=== PATIENT | female | born 1985 | race Caucasian/White ===

== ENCOUNTER 2020-02-27 05:31 | Inpatient (IN) | payer MEDICAID ==
[2020-02-27] MEDS ORDERED: Scopolamine 1.5 MG Transdermal Patch TOP SCH (05:45)
[2020-02-27] MEDS ORDERED: Acetaminophen 500 MG Tab PO ONE (05:45)
[2020-02-27] MEDS ORDERED: Celecoxib 200 MG Cap PO ONE (05:45)
[2020-02-27] MEDS ORDERED: Dextrose 5%-Lactated Ringers 1,000 ML IV SCH (06:00)
[2020-02-27] MEDS ORDERED: cefOXitin 2 GM Vial ONE (06:37)
[2020-02-27 06:43] LABS: HEMOGLOBIN A1C 5.4 % (4.5-6.2)
[2020-02-27] MEDS ORDERED: Glycopyrrolate 0.2 MG/ML 5 ML MDV ONE (07:12)
[2020-02-27] MEDS ORDERED: Ondansetron 4 MG/2 ML SDV ONE (07:12)
[2020-02-27] MEDS ORDERED: fentaNYL 250 MCG/5 ML SDV ONE ×3 (07:12→08:23)
[2020-02-27] MEDS ORDERED: Succinylcholine 200 MG/10 ML MDV ONE (07:12)
[2020-02-27] MEDS ORDERED: Propofol 200 MG/20 ML SDV ONE (07:12)
[2020-02-27] MEDS ORDERED: Neostigmine Methylsulfate 1 MG/ML 5 ML Syringe ONE (07:12)
[2020-02-27] MEDS ORDERED: Rocuronium 50 MG/5 ML Vial ONE (07:12)
[2020-02-27] MEDS ORDERED: Dexamethasone 4 MG/ML SDV ONE (07:12)
[2020-02-27] MEDS ORDERED: cefOXitin 2 GM in Sodium Chloride 0.9% 50 ML IV ONE (07:15)
[2020-02-27] MEDS ORDERED: Magnesium Sulfate 3.4 GM in Sodium Chloride 0.9% 100 ML IV SCH (07:30)
[2020-02-27] MEDS ORDERED: Ketamine 50 MG in Sodium Chloride 0.9% 49.5 ML IV SCH (07:30)
[2020-02-27] MEDS ORDERED: Ketamine 500 MG/5 ML MDV IV SCH (07:30)
[2020-02-27] MEDS ORDERED: Labetalol 20 MG/4 ML Syringe ONE (08:07)
[2020-02-27] MEDS ORDERED: hydrOXYzine HCL 100 MG/2 ML SDV IM ONE (09:21)
[2020-02-27] MEDS ORDERED: fentaNYL 100 MCG/2 ML SDV IVPUSH ONE (09:39)
[2020-02-27] MEDS: MAGNESIUM SULFATE IV ONE ×2 (10:37→10:40)
[2020-02-27] MEDS: SODIUM CHLORIDE 0.9% IV ONE ×2 (10:37→10:40)
[2020-02-27] MEDS ORDERED: Calcium Gluconate 10% 1 GM/10 ML SDV IVPUSH PRN (11:00)
[2020-02-27] MEDS ORDERED: HYDROmorphone 0.5 MG/0.5 ML Syringe IVPUSH PRN (11:00)
[2020-02-27] MEDS ORDERED: hydrOXYzine HCL 100 MG/2 ML SDV IM PRN (11:00)
[2020-02-27] MEDS ORDERED: diphenhydrAMINE 50 MG/ML SDV IVPUSH PRN (11:00)
[2020-02-27] MEDS ORDERED: Acetaminophen 500 MG Tab PO PRN (11:00)
[2020-02-27] MEDS ORDERED: HYDROmorphone 1 MG/ML Syringe IV PRN (11:00)
[2020-02-27] MEDS ORDERED: Metoclopramide 10 MG/2 ML SDV IVPUSH PRN (11:00)
[2020-02-27] MEDS ORDERED: Ondansetron 4 MG/2 ML SDV IVPUSH PRN (11:00)
[2020-02-27] MEDS ORDERED: Labetalol 20 MG/4 ML Syringe IVPUSH PRN (11:00)
[2020-02-27] MEDS ORDERED: Lactated Ringers 1,000 ML ONE (11:53)
[2020-02-27] MEDS: oxyCODONE 5 MG Tab PO PRN ×2 (12:04→20:06)
[2020-02-27] MEDS ORDERED: Pantoprazole 40 MG Vial IVPUSH SCH (14:00)
[2020-02-27] MEDS: cefOXitin 2 GM in Sodium Chloride 0.9% 50 ML IV SCH ×2 (14:54→19:59)
[2020-02-27] MEDS: Dextrose 5%-Lactated Ringers 1,000 ML IV SCH (14:54)
[2020-02-27] MEDS: Acetaminophen 500 MG Tab PO SCH ×2 (14:56→21:44)
[2020-02-27] MEDS: Heparin Sodium 5,000 Units/ML Vial SUBCUT SCH (15:56)
[2020-02-27] MEDS: MVI, Adult with Vitamin K 10 ML, Thiamine 200 MG, Chromium/Copper/Mang/Selen/Zn 1 ML in... IV SCH ×4 (17:35)
[2020-02-28] MEDS: cefOXitin 2 GM in Sodium Chloride 0.9% 50 ML IV SCH ×3 (01:11→13:33)
[2020-02-28] MEDS ORDERED: Benzocaine/Cetylpyridinium/Menthol Lozenge MUCMEM PRN (02:12)
[2020-02-28] MEDS: oxyCODONE 5 MG Tab PO PRN (02:17)
[2020-02-28] MEDS ORDERED: Iopamidol 612 MG/ML 50 ML SDV PO STA (02:41)
[2020-02-28] MEDS: Dextrose 5%-Lactated Ringers 1,000 ML IV SCH (03:15)
[2020-02-28] MEDS: Cyclobenzaprine 10 MG Tab PO PRN ×2 (03:17→09:26)
[2020-02-28] MEDS: Acetaminophen 500 MG Tab PO SCH ×3 (05:12→22:59)
[2020-02-28] MEDS: Heparin Sodium 5,000 Units/ML Vial SUBCUT SCH ×2 (05:14→16:02)
[2020-02-28] MEDS ORDERED: Ondansetron 4 MG Tab.DIS PO PRN (07:22)
[2020-02-28] MEDS ORDERED: hydrOXYzine HCl 25 MG Tab PO PRN (07:23)
[2020-02-28] MEDS ORDERED: Dextrose 5%-Lactated Ringers 1,000 ML IV SCH (07:30)
[2020-02-28] MEDS: Celecoxib 200 MG Cap PO SCH ×2 (08:43→22:59)
[2020-02-28] MEDS: SCOPOLAMINE PATCH CHECK TOP SCH (08:44)
--- NOTE | 2020-02-28 09:36 | CR ---
[facility] HISTORY: Postbariatric surgery FINDINGS: Patient swallowed water-soluble contrast. Upright views of the abdomen show no evidence of extravasation or obstruction. There is a surgical drain in the left upper quadrant. IMPRESSION: Status post bariatric surgery No extravasation or obstruction seen
--- NOTE | 2020-02-28 11:33 | PN ---
DATE OF SERVICE: 02/28/2020 SUBJECTIVE: Belinda is postoperative day #1. Upper GI this morning was normal. She reports most of her pain from her abdominal binder being too tight. Once it was removed, she states she felt 100% better. Oral intake 920, output 1200, and MARIA C drain put out 260 of a light pink drainage. She has been up ambulating. Afebrile. REVIEW OF SYSTEMS: Remainder of review of systems negative for any pertinent positives and negatives. OBJECTIVE: GENERAL: Belinda Lee is a pleasant 34-year-old female. She is quite sleepy, but answers questions appropriately. VITAL SIGNS: TPR is 98, 51, 18, blood pressure 116/64. HEENT: Negative. NECK: Supple. HEART: Regular rate and rhythm. LUNGS: Clear. ABDOMEN: Abdominal binder was removed. Dressings dry and intact. MARIA C drain intact as above. EXTREMITIES: Without peripheral edema. ASSESSMENT: 1. Laparoscopic gastric bypass surgery. 2. Liver biopsy. 3. Repair of diaphragmatic hernia. POSTOPERATIVE DIAGNOSES: 1. Morbid obesity. 2. Hepatomegaly. 3. Diaphragmatic hernia. Date of procedure 02/27/2020. Surgeon: Temo Andre MD. PLAN: 1. Decrease IV of D5 LR to 100 mL/hour. 2. Step 2 gastric bypass diet with no cereal. 3. May shower. 4. Communication order to give 3 med cups, one for 20 minutes and record at bedside. 5. Atarax 25 mg one q.4 hours p.r.n. pain in addition to the energy protocol. 6. Zofran ODT 4 mg q.4 hours p.r.n. nausea. 7. Continue use of incentive spirometer and ambulation. 8. We will evaluate p.r.n. or in a.m. Leonora Perea PA-C /[id number]
[2020-02-28] MEDS: MVI, Adult with Vitamin K 10 ML, Thiamine 200 MG, Chromium/Copper/Mang/Selen/Zn 1 ML in... IV SCH ×4 (16:02)
[2020-02-28] MEDS ORDERED: Pantoprazole 40 MG Delayed-Release Granules 1 Packet PO SCH (16:30)
--- NOTE | 2020-02-28 17:09 | OR ---
DATE OF PROCEDURE: 02/27/2020 SURGEON: Temo Andre MD PREOPERATIVE DIAGNOSIS: Morbid obesity. POSTOPERATIVE DIAGNOSES: 1. Morbid obesity. 2. Marked hepatomegaly. 3. Paraesophageal diaphragmatic hernia. PROCEDURES: 1. Laparoscopic Reza-en-Y gastric bypass with long limb gastroenterostomy (47961). 2. Deo-Cut needle liver biopsy (04764). 3. Repair of paraesophageal diaphragmatic hernia (77988). ANESTHESIA: General. HOSPICE HOME HEALTH AIDE: Leonora Perea PA-C INDICATIONS FOR PROCEDURE: A 34-year-old female presenting with longstanding morbid obesity and increasingly significant comorbidities. After preoperative evaluation and discussion, she wished to proceed with a gastric bypass procedure. Potential risks of the procedure including bleeding, infection, leaks from various GI tract closures, problems with bowel obstruction over time as well as possibility of cardiopulmonary, septic, or hemorrhagic complications leading to were discussed, and the patient wishes to proceed. DETAILS OF PROCEDURE: The patient was taken to the operating room, and after general endotracheal anesthesia was induced, she was converted to lithotomy position and the abdomen prepped and draped. At 15 cm inferior and 5 cm left of xiphoid process, transverse incision was made and peritoneal cavity entered under direct vision with an Optiview trocar, inflated to 15 mmHg with CO2. Laparoscope was then reinserted. No underlying trocar insertion site injuries were seen. Following this, five additional trocars were placed across the upper and mid abdomen. Bilateral transversus abdominis plane blocks were placed. The patient was noted to have marked hepatomegaly and the liver being grossly fatty infiltrated and Deo-Cut needle biopsies were obtained from the left lobe of liver. Minimal bleeding from the biopsy sites was controlled with electrocautery. The omentum was then divided in the midline up to the level of the transverse colon. Small bowel was then identified at the ligament of Treitz and traced down to 125 cm distal to that point, it was divided transversely with a VEDA stapler. Small bowel was then traced down additional 180 cm where the [id number] enteroenterostomy was accomplished with internal firing of the Endo-VEDA 60 mm stapler, opening then closed transversely with the same stapler, and the angles anastomosed and mesenteric defect approximated with some 0 Ethibond stitch along with fibrin sealant. The divided Reza limb was then from the mesentery for a few centimeters, which allowed an antecolic position of the Reza limb up to the level of the gastroesophageal junction without tension. The liver was then retracted anteriorly. The patient noted to have a moderate-sized paraesophageal diaphragmatic hernia with prolapse of perigastric fat and gastric fundus in a plane anterior to the course of esophagus. Hernia was reduced and the peritoneum reflected downward. The repair was then accomplished with some 0 Ethibond sutures, reinforced with PTFE pledgets. The gastrointestinal catheter was then inflated 15 mL and pulled up snugly against the EG junction. Gastric wall over the apex balloon was then marked with electrocautery and balloon catheter deflated and pulled up in the stomach. The lesser omental tissue adjacent to the gastric cardia was incised allowing dissection behind the stomach at that level. Pouch formation was initiated with transverse firing of the VEDA stapler at the level of the cauterized filippo at the gastric cardia with the VEDA stapler and then the skin pouch completed with additional firings of VEDA alxeander up to and through the angle of His. Upon completion of the pouch, both staple lines appeared to be intact. The anvil of a 25 mm EEA stapler was attached to a [place] sump type tube. The latter was brought down through the mouth, taken out through small opening in the gastric pouch, allowing the anvil likewise to be brought down to within the gastric pouch. The divided end of Reza limb was then opened and the main body of the EEA stapler passed several centimeters into the lumen of small bowel, brought up the anvil and united with it, thus creating the gastrojejunostomy. Upon removal of stapler, double donuts of mucosa were noted within it. Small bowel was closed off with a vascular staple line. Gastrojejunostomy was reinforced with 3-0 Vicryl seromuscular stitch along with fibrin sealant. A leak test was accomplished with injection of 120 mL of air in the gastric pouch while it was submerged with cefoxitin- containing saline solution. No leaks were identified. A single Ray-Goodson drain was then taken out through the left lateral trocar site and positioned adjacent to the gastrojejunostomy, from there up into the splenic fossa. With no further problems noted, trocars were removed and the peritoneal cavity deflated. Incisions were closed with some 4- 0 Vicryl skin stitch, which was also used to fix the drain. The patient was taken to the recovery room in satisfactory condition. Physician land surveyor assistant, Leonora Perea, played an essential role in assisting in this case, helping to position the patient, retract structures as needed, as well as suturing and cutting sutures when indicated. Her presence improved patient safety and decreased the operative time. Temo Andre MD /[id number]
[2020-02-29] MEDS: Heparin Sodium 5,000 Units/ML Vial SUBCUT SCH (07:23)
[2020-02-29] MEDS: Acetaminophen 500 MG Tab PO SCH (07:23)
[2020-02-29] MEDS ORDERED: Magnesium Hydroxide 400 MG/5 ML Susp 30 ML Cup PO PRN (08:26)
[2020-02-29] MEDS ORDERED: Cyanocobalamin (Vitamin B12) 1,000 MCG/ML SDV IM ONE (09:00)
[2020-02-29] MEDS: Celecoxib 200 MG Cap PO SCH (09:24)
[2020-02-29] MEDS: SCOPOLAMINE PATCH CHECK TOP SCH (09:25)
--- NOTE | 2020-02-29 11:51 | DISCH ---
ADMISSION DIAGNOSES: 1. Morbid obesity. 2. Gastroesophageal reflux disease. 3. Generalized anxiety disorder. DISCHARGE DIAGNOSES: 1. Laparoscopic Reza-en-Y gastric bypass surgery with long limb gastroenterostomy. 2. Deo-Cut needle liver biopsy. 3. Repair of paraesophageal diaphragmatic hernia. POSTOPERATIVE DIAGNOSES: 1. Morbid obesity. 2. Marked hepatomegaly. 3. Paraesophageal diaphragmatic hernia. 4. Date of procedure: 02/27/2020. Surgeon: Temo Andre MD. HISTORY: Belinda Lee is a pleasant 34-year-old female with longstanding history of morbid obesity and increasing comorbidities. After preoperative evaluation and discussion of possible risks and possible complications, she wished to proceed with surgical procedure. HOSPITAL COURSE: Belinda had her surgery on 02/27/2020. She had no operative complications. On postoperative day #1, her upper GI was normal. She was started on a step 2 gastric bypass diet with no cereal. Her activity was good. She received dietary instruction. On postoperative day #2, vital signs stable. Activity good. Pain controlled per energy protocol, and she was able to be discharged to home. She did receive a vitamin B12 1000 mcg IM injection prior to discharge. PHYSICAL EXAMINATION: GENERAL: Belinda is a pleasant 34-year-old female. VITAL SIGNS: Height is 5 feet 6 inches, weight is 237 pounds, BMI is 38. TPR 97.9, 58, 16, blood pressure 109/60. HEENT: Negative. NECK: Supple. HEART: Regular rate and rhythm. LUNGS: Clear. ABDOMEN: Incisions look good. MARIA C drain will be removed prior to discharge. It has been draining a pink clear drainage. Abdominal binder, she was not able to tolerate it. EXTREMITIES: Without peripheral edema. DISPOSITION: Discharged to home. CONDITION: Stable and improving. FOLLOWUP: Appointment with Leonora Perea PA-C, at [facility] on 03/11/2020 at 10:15 a.m. HOME MEDICATIONS: 1. Zofran ODT 4 mg p.o. q.4 hours p.r.n. nausea, #30. 2. Milk of magnesia 30 mL, 2 doses were sent home with the patient. 3. Tylenol Extra Strength 1000 mg p.o. q.8 hours. 4. Celebrex 200 mg p.o. b.i.d. 5. Protonix 40 mg p.o. daily. 6. Nexplanon implant. DIET: Step 2 gastric bypass diet with no cereal until 03/12/2020. ACTIVITY: No lifting greater than 10 pounds for 2 weeks. Walk 6 times daily. Driving: Do not drive for 1 week. Shower/bathing: May shower. DISCHARGE INSTRUCTIONS: Keep operative site clean and dry. Wear abdominal binder only if tolerated. Notify provider if any fever, increased pain, swelling, redness, drainage, nausea, vomiting, and use incentive spirometer 10 times every hour while awake. /[id number]
== END 2020-02-29 09:30 | disposition home or self-care (01) | DRG 621 ==
LOC: JP.SDS 05:31 → JP.SDSSCHI 05:32 → JP.MS 09:15 → EDSTATUS 12:45
PROVIDERS: ADMIT Surgery; ATTEND Surgery
PROC: 0D164ZA Bypass Stomach to Jejunum, Percutaneous Endoscopic Approach (ICD-10-PCS; principal; 2020-02-27)
PROC: 0FB24ZX Excision of Left Lobe Liver, Percutaneous Endoscopic Approach, Diagnostic (ICD-10-PCS; 2020-02-27)
PROC: 0BQT4ZZ Repair Diaphragm, Percutaneous Endoscopic Approach (ICD-10-PCS; 2020-02-27)
DX: E66.01 Morbid (severe) obesity due to excess calories (principal); R16.0 Hepatomegaly, not elsewhere classified; K44.9 Diaphragmatic hernia without obstruction or gangrene; F41.1 Generalized anxiety disorder; K21.9 Gastro-esophageal reflux disease without esophagitis; Z68.38 Body mass index [BMI] 38.0-38.9, adult
CPT/HCPCS: 36415; 74240; 74240-26; 81025; 82728; 82962; 83036; 86850; 86900; 86901; 93005; 93010; A9270-GY; C9113; J0171; J0330; J0694; J1100; J1644; J2405; J2704; J2710; J2795; J3010; J3410; J3411; J3420; J3475; J3490; J7050; J7120; J7121; Q9967

== ENCOUNTER 2024-07-06 08:06 | Day surgery (SDC) | payer MEDICAID ==
[2024-07-06] MEDS ORDERED: Propofol 200 MG/20 ML SDV ONE (09:09)
[2024-07-06] MEDS ORDERED: Midazolam 1 MG/ML 2 ML SDV ONE (09:09)
[2024-07-06] MEDS ORDERED: fentaNYL 50 MCG/ML SDV ONE (09:09)
[2024-07-06] MEDS: Lactated Ringers 1,000 ML IV SCH (09:09)
[2024-07-06] MEDS: Cyanocobalamin (Vitamin B12) 1,000 MCG/ML SDV IM ONE (09:32)
[2024-07-06] MEDS: MVI, Adult with Vitamin K 10 ML, Thiamine 200 MG, Chromium/Copper/Mang/Selen/Zn 1 ML in... IV SCH (12:34)
== END 2024-07-06 12:25 | disposition home or self-care (01) ==
LOC: JP.SDS 08:06
PROVIDERS: ATTEND Surgery
DX: R13.10 Dysphagia, unspecified (principal); K21.00 Gastro-esophageal reflux disease with esophagitis, without bleeding; F41.9 Anxiety disorder, unspecified; Z98.84 Bariatric surgery status
CPT/HCPCS: 43239; 43245; 81025; 88305; C1726; J2250; J2704; J3010; J3411; J3420; J7120; 00731-QZ